=== PATIENT | male | born 1955 | race African-American/Black ===

== ENCOUNTER 2021-03-21 20:37 | Emergency (ER) | payer OTHER ==
[~2021-03-21] VITALS: Ht 185.4 cm; Wt 103.2 kg
[2021-03-21] MEDS ORDERED: AMLO-258 PO (20:58)
[2021-03-21] MEDS ORDERED: COLC0.6T73 PO (20:58)
[2021-03-21] MEDS ORDERED: GABA-1181 PO (20:58)
[2021-03-21] MEDS ORDERED: ALLO100T PO (20:58)
[2021-03-21] MEDS ORDERED: FERR-89 PO (20:58)
[2021-03-21] MEDS ORDERED: SODI650T33 PO (20:58)
[2021-03-21] MEDS ORDERED: FURO-152 PO (20:58)
[2021-03-21] MEDS ORDERED: GLIP2.5ER PO (20:58)
[2021-03-21] MEDS ORDERED: LIRA0.6P SQ (20:58)
[2021-03-21] MEDS ORDERED: CALC0.25 PO (20:58)
[2021-03-21] MEDS ORDERED: ATOR40TA28 PO (20:58)
[2021-03-21] MEDS ORDERED: ATEN-72 PO (20:58)
[2021-03-21 21:51] LABS: BASOPHILS % (AUTO) 0.7 % (0.0-2.0); EOSINOPHILS % (AUTO) 3.8 % (1.0-6.0); HEMATOCRIT 30.7 % (41-53); HEMOGLOBIN 10.2 g/dL (13.5-17.5); LYMPHOCYTES # (AUTO) 1.2 K/uL (1.0-4.8); MEAN CORPUSCULAR HEMOGLOBIN 28.3 pg (26.0-34.0); MEAN CORPUSCULAR HGB CONC 33.3 G/dL (31.0-37.0); MEAN CORPUSCULAR VOLUME 85 fL (80-100); MONOCYTES # (AUTO) 0.5 K/uL (0.1-1.0); MONOCYTES % (AUTO) 8.3 % (2.0-9.0); NEUTROPHILS # (AUTO) 3.6 K/uL (1.8-7.7); NEUTROPHILS % (AUTO) 65.2 % (40.0-70.0); PLATELET COUNT (AUTO) 159 K/uL (150-450); RED BLOOD CELL COUNT(AUTO) 3.61 MIL/uL (4.50-5.90); RED CELL DISTRIBUTION WIDTH 15.8 % (11.5-14.5)
[2021-03-21 22:03] LABS: CALCIUM, TOTAL 9.7 mg/dL (8.8-10.5); CREATININE 3.01 mg/dL (0.60-1.30); POTASSIUM 4.6 mmol/L (3.5-5.1)
[2021-03-21 22:08] LABS: ALBUMIN 3.9 g/dL (3.4-5.0); BILIRUBIN,TOTAL 0.3 mg/dL (0.1-1.0); TOTAL PROTEIN, SERUM 8.2 g/dL (6.4-8.2)
[2021-03-21 23:56] LABS: GLUCOSE,POINT OF CARE 107 MG/DL (70-110)
[2021-03-22 01:40] LABS: COVID AG,FIA SOURCE NASAL SWAB
[2021-03-22 02:11] LABS: GLUCOSE,POINT OF CARE 132 MG/DL (70-110)
[2021-03-22 03:41] LABS: GLUCOSE,POINT OF CARE 123 MG/DL (70-110)
[2021-03-22 03:43] VITALS: BP 160/99
== END 2021-03-22 04:06 | disposition short-term general hospital (02) ==
LOC: EMS 20:47
DX: T38.3X1A Poisoning by insulin and oral hypoglycemic [antidiabetic] drugs, accidental (unintentional), initial encounter (principal); N18.9 Chronic kidney disease, unspecified; I10 Essential (primary) hypertension; E11.9 Type 2 diabetes mellitus without complications; Y92.89 Other specified places as the place of occurrence of the external cause; Z79.899 Other long term (current) drug therapy; Z20.822 Contact with and (suspected) exposure to COVID-19
CPT/HCPCS: 80053; 82948; 82962; 85025; 99285